=== PATIENT | female | born 1940 | race African-American/Black ===

== ENCOUNTER 2016-11-12 12:00 | Emergency (ER) | payer OTHER ==
[~2016-11-12] VITALS: Ht 152.4 cm; Wt 86.0 kg
[~2016-11-12 12:00] MED LIST: AMLO10 PO; ASPI81 PO; ATOR40TA PO; FLUT1INH7 INH; FURO20 PO; GABA100C4 PO; GLIP10TA67 PO; IPRAAER IN; KCL10C PO; LOSA100T PO; METF500 PO; METO25 PO; PRIL40CA PO; TRAD5TAB PO
[2016-11-12 12:02] VITALS: BP 133/97; TEMP 98.1; O2SAT 98
[2016-11-12 12:54] LABS: BASOPHIL # 0.1 TH/MM3 (0-0.2); BASOPHIL % 0.9 % (0.0-2.0); EOSINOPHIL # 0.1 TH/MM3 (0-0.4); EOSINOPHIL % 1.9 % (0.0-4.0); HEMATOCRIT 36.4 % (35.0-46.0); HEMO FLAGS DIFF FINAL; LYMPH % 33.4 % (9.0-44.0); LYMPHOCYTE # 2.4 TH/MM3 (1.0-4.8); MEAN CELL VOLUME 85.1 FL (80.0-100.0); MONO % 7.7 % (0.0-8.0); NEUT % 56.1 % (16.0-70.0); PLATELET COUNT 241 TH/MM3 (150-450); RED BLOOD COUNT 4.28 MIL/MM3 (4.00-5.30); RED CELL DISTRIBUTION WIDTH 13.9 % (11.6-17.2); WHITE BLOOD COUNT 7.1 TH/MM3 (4.0-11.0)
[2016-11-12 13:12] LABS: ANION GAP 10 MEQ/L (5-15); BICARBONATE 25.1 MEQ/L (21.0-32.0); BLOOD UREA NITROGEN 16 MG/DL (7-18); CHLORIDE 106 MEQ/L (98-107); GLOMERULAR FILTRATION RATE 70 ML/MIN (>89); POTASSIUM 3.4 MEQ/L (3.5-5.1); SODIUM (NA) 141 MEQ/L (136-145)
[2016-11-12 13:17] LABS: CREATINE KINASE 115 U/L (26-192)
[2016-11-12 13:29] LABS: CKMB 2.2 NG/ML (0.5-3.6)
[2016-11-12 13:42] VITALS: RESP 17; O2SAT 100
[2016-11-12 13:45] VITALS: BP 169/89; PULSE 88; RESP 20; O2SAT 100
[2016-11-12] MEDS ORDERED: SIME1CAP PO (14:02)
--- NOTE | 2016-11-12 14:02 | PD ---
HPI . Chest pain Chief Complaint: Chest Pain Time Seen by Provider: 13:44 Travel History International Travel<30 days: No Contact w/Intl Traveler<30days: No Traveled to known affect area: No History of Present Illness HPI Patient presents with a two-week history of chest pain and shortness of breath. Pain is relieved by Shahnaz-[place]. She notes no exacerbating factors. Specifically, pain is not exacerbated by movement or breathing. The pain has been continuous. PFSH Past Medical History Hx Anticoagulant Therapy: Yes Cancer: Yes ([place]) Cardiovascular Problems: Yes High Cholesterol: Yes Chemotherapy: No Cerebrovascular Accident: Yes (2004) Diabetes: Yes Patient Takes Glucophage: No Diminished Hearing: Yes ([place]) Endocrine: Yes Gastrointestinal Disorders: Yes ([place]) Genitourinary: No Hypertension: Yes Immune Disorder: No Implanted Vascular Access Dvce: No Musculoskeletal: Yes Neurologic: Yes Psychiatric: No Reproductive: No Respiratory: Yes ([place]) Myocardial Infarction: Yes Radiation Therapy: No Tetanus Vaccination: > 5 Years Influenza Vaccination: Yes Menopausal: Yes : 9 Para: 9 Miscarriage: 0 : 0 Tubal Ligation: Yes Past Surgical History Abdominal Surgery: Yes (PARTIAL COLECTOMY) Genitourinary Surgery: Yes Gynecologic Surgery: Yes (TUBAL LIGATION) Other Surgery: Yes Social History Alcohol Use: No Tobacco Use: No (QUIT NOVEMBER 2010 (SMOKED 1 PACK Q 4 DAYS)) Substance Use: No Allergies-Medications (Allergen,Severity, Reaction): Coded Allergies: Pen-Vee K (Verified Allergy, Severe, Swelling, 11/12/16) Reported Meds & Prescriptions Reported Meds & Active Scripts Active Combivent Respimat (Albuterol/Ipratropium) Respimat Aer 1 Inhalation IN Q6HR KCl 10 Meq Cap (Potassium Chloride) 10 Meq Capcr 10 Meq PO DAILY 30 Days Lasix 20 Mg Tab (Furosemide) 20 Mg Tab 20 Mg PO DAILY 30 Days Metoprolol Tartrate 25 mg (Metoprolol Tartrate) 25 Mg Tab 25 Mg PO BID 30 Days Reported Glipizide Xl (Glipizide) 10 Mg Tab 10 Mg PO DAILY Gabapentin 100 Mg Cap 100 Mg PO Q8HR PRN Glucophage 500 mg (Metformin HCl) 500 Mg Tab 500 Mg PO BID Losartan Potassium 100 MG (Losartan Potassium) 100 Mg Tab 100 Mg PO DAILY Breo Ellipta 200-25 Mcg/INH (Fluticasone Furoate-Vilanterol) 1 Inh Inh 1 Puff INH DAILY Tradjenta (Linagliptin) 5 Mg Tab 5 Mg PO DAILY Prilosec 40 mg cap (Omeprazole) 40 Mg Cap 40 Mg PO DAILY Atorvastatin 40 mg (Atorvastatin Calcium) 40 Mg Tab 40 Mg PO DAILY Norvasc (Amlodipine Besylate) 10 Mg Tab 10 Mg PO DAILY Aspirin 81 Mg Tab 81 Mg PO DAILY Review of Systems Except as stated in HPI: all other systems reviewed are Neg General / Constitutional: No: Fever, Chills Cardiovascular: Positive: Chest Pain or Discomfort Respiratory: Positive: Shortness of Breath Gastrointestinal: Positive: Indigestion Physical Exam Narrative GENERAL: Healthy-appearing older woman in no distress. SKIN: Warm and dry. HEAD: Atraumatic. Normocephalic. EYES: Pupils equal and round. ENT: No nasal bleeding or discharge. Mucous membranes pink and moist. NECK: Trachea midline. Neck is supple. CARDIOVASCULAR: Regular rate and rhythm. Heart sounds are normal. RESPIRATORY: No accessory muscle use. Lungs are clear with full air movement throughout. Chest wall is nontender to palpation. GASTROINTESTINAL: Abdomen soft. Diffuse upper abdominal tenderness. No guarding or rebound. Nondistended. MUSCULOSKELETAL: No obvious deformities. No edema. NEUROLOGICAL: Awake and alert. No obvious cranial nerve deficits. Motor grossly within normal limits. Normal speech. PSYCHIATRIC: Appropriate mood and affect; insight and judgment normal. Data Data Last Documented VS Vital Signs Date Time Temp Pulse Resp B/P Pulse Ox O2 Delivery O2 Flow Rate FiO2 11/12/16 13:45 88 20 169/89 100 Room Air 11/12/16 12:02 98.1 Orders Electrocardiogram (11/12/16 12:15) Complete Blood Count With Diff (11/12/16 12:15) Basic Metabolic Panel (Bmp) (11/12/16 12:15) Ckmb (Isoenzyme) Profile (11/12/16 12:15) Troponin I (11/12/16 12:15) Iv Access Insert/Monitor (11/12/16 12:15) Ecg Monitoring (11/12/16 12:15) Oxygen Administration (11/12/16 12:15) Oximetry (11/12/16 12:15) CKMB (11/12/16 12:31) CKMB% (11/12/16 12:31) Labs Laboratory Tests Test 11/12/16 12:31 White Blood Count 7.1 TH/MM3 Red Blood Count 4.28 MIL/MM3 Hemoglobin 12.4 GM/DL Hematocrit 36.4 % Mean Corpuscular Volume 85.1 FL Mean Corpuscular Hemoglobin 29.0 PG Mean Corpuscular Hemoglobin 34.0 % Concent Red Cell Distribution Width 13.9 % Platelet Count 241 TH/MM3 Mean Platelet Volume 9.8 FL Neutrophils (%) (Auto) 56.1 % Lymphocytes (%) (Auto) 33.4 % Monocytes (%) (Auto) 7.7 % Eosinophils (%) (Auto) 1.9 % Basophils (%) (Auto) 0.9 % Neutrophils # (Auto) 4.0 TH/MM3 Lymphocytes # (Auto) 2.4 TH/MM3 Monocytes # (Auto) 0.5 TH/MM3 Eosinophils # (Auto) 0.1 TH/MM3 Basophils # (Auto) 0.1 TH/MM3 CBC Comment DIFF FINAL Differential Comment Sodium Level 141 MEQ/L Potassium Level 3.4 MEQ/L Chloride Level 106 MEQ/L Carbon Dioxide Level 25.1 MEQ/L Anion Gap 10 MEQ/L Blood Urea Nitrogen 16 MG/DL Creatinine 0.94 MG/DL Estimat Glomerular Filtration 70 ML/MIN Rate Random Glucose 153 MG/DL Calcium Level 9.1 MG/DL Total Creatine Kinase 115 U/L Creatine Kinase MB 2.2 NG/ML Troponin I 0.05 NG/ML MDM Medical Decision Making Medical Screen Exam Complete: Yes Emergency Medical Condition: Yes Medical Record Reviewed: Yes (medical history is significant for hypertension, diabetes, congestive heart failure. She had a nuclear stress test and myocardial perfusion scan done in May 2016. She was found to have an ejection fraction of 35%. 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 She had no reversible ischemia.) Interpretation(s) EKG shows sinus rhythm with PACs. She has LVH. Differential Diagnosis Differential diagnosis of chest pain includes but is not limited to musculoskeletal pain, pulmonary embolism, acute coronary syndrome, pneumonia, pleurisy Narrative Course Patient presents with a two-week history of chest pain or shortness of breath. Chest pain is relieved by Shahnaz[place]. She states that Shahnaz-[place] makes her burp and relieves her pain. CBC & BMP Diagram 11/12/16 12:31 Cardiac enzymes are negative. As this patient has had ongoing pain for 2 weeks and has normal cardiac enzymes today, she is safe for discharge to home. Reassuringly, she had a nuclear stress test and myocardial perfusion test in May that showed no reversible lesions. Diagnosis Primary Impression: Chest pain in adult Patient Instructions: General Instructions, Indigestion (ED) Med/Other Pt SpecificInfo: Prescription(s) given Scripts Simethicone (Simethicone Extra Strength)125 mg Lsa200 Mg PO QID PRN (INDIGESTION ) #60 CAP Ref 0 Prov:Lily Martinez MD 11/12/16 Disposition: 01 DISCHARGE HOME Condition: Stable Lily Martinez MD Nov 12, 2016 14:02
[2016-11-12 14:25] VITALS: BP 130/78; TEMP 97.3
--- NOTE | 2016-11-13 20:14 | EKG ---
Date Performed: 11/12/2016 Time Performed: 12:24:18 PTAGE: 76 years EKG: Sinus rhythm WITH FIRST DEGREE AV BLOCK WITH FREQUENT SUPRAVENTRICULAR PREMATURE COMPLEXES LEFT VENTRICULAR HYPER TROPHY AND ST-T CHANGE ABNORMAL ECG PREVIOUS TRACING : 05/28/2016 03.40 Compared to the previous tracing, previously sinus bradycar jim and LVH not noted DOCTOR: Stepan Wilhelm Interpretating Date/Time 11/13/2016 20:13:00
== END 2016-11-12 14:25 | disposition home or self-care (01) ==
LOC: NEPA 12:00
DX: R07.9 Chest pain, unspecified (principal); R94.31 Abnormal electrocardiogram [ECG] [EKG]; I10 Essential (primary) hypertension; I25.2 Old myocardial infarction; Z85.038 Personal history of other malignant neoplasm of large intestine
CPT/HCPCS: 80048; 82550; 82552; 84484; 85025; 93005